=== PATIENT | female | born 1955 | race Caucasian/White ===

== ENCOUNTER 2019-11-25 11:50 | Emergency (ER) | payer MEDICAID ==
[~2019-11-25] VITALS: Ht 157.5 cm; Wt 74.8 kg
[2019-11-25 11:50] VITALS: BP_SYST 115
[2019-11-25] MEDS ORDERED: NACL 0.9% 1,000 ML IV ONE (12:09)
[2019-11-25] MEDS ORDERED: KETOROLAC TROMETHAMINE 30 MG VIAL IVP ONE (12:30)
[2019-11-25 13:36] LABS: BASOPHILS # (AUTO) 0.1 K/uL (0.0-0.2); BASOPHILS % (AUTO) 1.1 % (0.0-2.0); EOSINOPHILS # (AUTO) 0.4 K/uL (0.0-0.4); EOSINOPHILS % (AUTO) 6.5 % (0.0-4.0); HEMATOCRIT 43.4 % (36-48); HEMOGLOBIN 14.8 g/dL (12.0-16.0); LYMPHOCYTES # (AUTO) 2.3 K/uL (1.0-5.5); LYMPHOCYTES % (AUTO) 34.4 % (20.5-51.5); MEAN CORPUSCULAR HEMOGLOBIN 31 pg (27-31); MEAN CORPUSCULAR HGB CONC 34 % (32-36); MEAN CORPUSCULAR VOLUME 90 fL (79.0-98.0); MONOCYTES # (AUTO) 0.5 K/uL (0.0-1.0); MONOCYTES % (AUTO) 7.9 % (1.7-9.3); NEUTROPHILS # (AUTO) 3.3 K/uL (1.8-7.7); NEUTROPHILS % (AUTO) 50.1 % (40.0-70.0); PLATELET COUNT (AUTO) 285 K/uL (130-430); RED BLOOD CELL COUNT(AUTO) 4.84 MIL/uL (4.2-6.2); RED CELL DISTRIBUTION WIDTH 13.7 % (9.0-15.0); WHITE BLOOD COUNT (AUTO) 6.6 K/uL (4.8-10.8)
[2019-11-25 13:43] LABS: INR 0.9 (0.8-1.2); PROTHROMBIN TIME 9.3 SECS (9.5-12.5)
[2019-11-25 13:47] LABS: ANION GAP 8 (5-15); CALCIUM 8.3 mg/dL (8.4-11.0); CHLORIDE 92 mmol/L (98-107); CREATININE 1.52 mg/dL (0.55-1.30); GLUCOSE 90 mg/dL (70-99); POTASSIUM 3.2 mmol/L (3.5-5.1); SODIUM SERUM 129 mmol/L (136-145); UREA NITROGEN, BLOOD 27 mg/dL (8-21)
[2019-11-25 13:52] LABS: ALANINE AMINOTRANSFERASE 46 U/L (12-78); ALCOHOL, BLOOD < 3 mg/dL (<10); AMYLASE 67 U/L (0-100); ASPARTATE AMINOTRANSFERASE 38 U/L (10-37); GFR AFRICAN AMERICAN 44 mL/min (>90); LIPASE 61 U/L (73-393); TOTAL BILIRUBIN 0.3 mg/dL (0.0-1.0)
[2019-11-25] MEDS ORDERED: MORPHINE 2 MG/ML INJ. SYRINGE IVP ONE (14:45)
[2019-11-25 15:41] LABS: BILIRUBIN,URINE NEGATIVE (NEGATIVE); BLOOD, URINE NEGATIVE (NEGATIVE); CLARITY/URINE CLEAR (CLEAR); COLOR,URINE YELLOW (YELLOW); GLUCOSE,URINE NEGATIVE (NEGATIVE); KETONES,URINE NEGATIVE (NEGATIVE); LEUKOCYTE ESTERASE ,URINE NEGATIVE (NEGATIVE); NITRITE, URINE NEGATIVE (NEGATIVE); PROTEIN URINE NEGATIVE (NEGATIVE); UROBILINOGEN,URINE 0.2 (0.2-1.0)
[2019-11-25 16:01] VITALS: BP_SYST 124
[2019-11-25 16:09] LABS: BARBITURATE, URINE NEGATIVE (NEG <=200); BENZODIAZEPINE, URINE POSITIVE (NEG <=150); CANNABINOID, URINE NEGATIVE (NEG <=50); COCAINE, URINE NEGATIVE (NEG <=150); METHAMPHETAMINES SCREEN,URINE NEGATIVE (NEG <=500); OPIATE, URINE POSITIVE (NEG <=100); PHENCYCLIDINE SCREEN,URINE NEGATIVE (NEG <=25); UR TRICYCLIC ANTIDEPRESSANTS NEGATIVE (NEG <=300); URINE AMPHETAMINE NEGATIVE (NEG <=500); URINE METHADONE NEGATIVE (NEG <=200); URINE OXYCODONE SCREEN NEGATIVE (NEG <=100); URINE PROPOXYPHENE SCREEN NEGATIVE (NEG <=300)
== END 2019-11-25 15:55 | disposition home or self-care (01) ==
LOC: SED 11:50
DX: S05.12XA Contusion of eyeball and orbital tissues, left eye, initial encounter (principal); M25.512 Pain in left shoulder; R42 Dizziness and giddiness; W18.39XA Other fall on same level, initial encounter; Y93.89 Activity, other specified; Y92.89 Other specified places as the place of occurrence of the external cause; Y99.8 Other external cause status
CPT/HCPCS: 36415; 70450; 70486; 71045; 72125; 73030; 80053; 80307; 81003; 82150; 83690; 84484; 85025; 85610; 85730; 96361; 96374; 96375; 99284; G0481; G0482; J1885; J2270; J7030; 93005

== ENCOUNTER 2021-07-18 17:13 | Emergency (ER) | payer OTHER ==
[~2021-07-18] VITALS: Ht 157.5 cm; Wt 70.3 kg
[2021-07-18 17:15] VITALS: BP_SYST 135
--- NOTE | 2021-07-18 18:00 | NUR ---
Patient to ER bed 3 to gown for evaluation. Side rails up.
--- NOTE | 2021-07-18 18:05 | NUR ---
OFF TO RADIOLOGY, CALM, ALERT, NO DISTRESS
--- NOTE | 2021-07-18 18:22 | NUR ---
BACK FROM X-RAY
--- NOTE | 2021-07-18 19:00 | NUR ---
DR. LEWIS AT BEDSIDE FOR MSE
[2021-07-18] MEDS ORDERED: IBUPROFEN 600 MG TABLET PO ONE (19:15)
[2021-07-18] MEDS ORDERED: HYDROcodone/ACETAMIN 5-325 MG TAB (NORCO/ VICODIN) PO ONE (19:15)
[2021-07-18] MEDS ORDERED: IBUP-1969 PO (19:31)
[2021-07-18] MEDS ORDERED: HYDR-3917 PO (19:31)
[2021-07-18 19:46] VITALS: BP_SYST 118
--- NOTE | 2021-07-18 19:47 | NUR ---
Patient given written and verbal discharge instructions and verbalizes understanding. DR. DEBBIE HOLGUIN MD discussed with patient the results and treatment provided. Patient in stable condition. ID arm band removed. Rx of NORCO, IBUPROFEN given. Patient educated on pain management and to follow up with PMD. Pain Scale 0/10. Opportunity for questions provided and answered. Medication side effect fact sheet provided.
== END 2021-07-18 19:47 | disposition home or self-care (01) ==
LOC: SED 17:13
DX: S00.03XA Contusion of scalp, initial encounter (principal); M25.511 Pain in right shoulder; Z79.899 Other long term (current) drug therapy; W18.39XA Other fall on same level, initial encounter; Y93.89 Activity, other specified; Y92.89 Other specified places as the place of occurrence of the external cause; Y99.8 Other external cause status
CPT/HCPCS: 70450-TC; 72125-TC; 73030; 76376; 99285